=== PATIENT | female | born 1985 | race Caucasian/White ===

== ENCOUNTER 2019-11-17 15:56 | Emergency (ER) | payer OTHER ==
[~2019-11-17] VITALS: Ht 157.5 cm; Wt 65.5 kg
[2019-11-17] MEDS ORDERED: IBUPROFEN 600 MG TABLET PO ONE (17:30)
[2019-11-17 18:15] VITALS: BP 104/54
[2019-11-17 18:28] LABS: INFLUENZA TYPE A NEGATIVE FOR TYPE A (NEGATIVE); INFLUENZA TYPE B NEGATIVE FOR TYPE B (NEGATIVE)
== END 2019-11-17 19:11 | disposition home or self-care (01) ==
LOC: EMS 15:59
DX: B34.9 Viral infection, unspecified (principal); M79.10 Myalgia, unspecified site; Z20.828 Contact with and (suspected) exposure to other viral communicable diseases
CPT/HCPCS: 87635; 87804